=== PATIENT | female | born 1945 | race African-American/Black ===

== ENCOUNTER 2021-05-28 14:15 | Emergency (ER) | payer MEDICARE, OTHER ==
[~2021-05-28] VITALS: Ht 170.2 cm; Wt 82.6 kg
[~2021-05-28 14:15] MED LIST: GLIP10TA12 PO; GLU500 PO
[2021-05-28 14:20] VITALS: BP 129/79
--- NOTE | 2021-05-28 14:42 | NUR ---
DR RODRIGUEZ AT BEDSIDE EXAMINING PT
[2021-05-28] MEDS ORDERED: BLOOD GLUCOSE MONITORING 1 DEV DEV FS ONE (14:50)
[2021-05-28] MEDS ORDERED: DEXAMETHASONE 4 MG TAB PO ONE (14:50)
[2021-05-28] MEDS ORDERED: CETI10SG1 PO (14:56)
[2021-05-28] MEDS ORDERED: FAMO20TA13 PO (14:57)
--- NOTE | 2021-05-28 14:59 | NUR ---
75 Y/O Female with c/o area surrounding left eye swelling. Patient is S/P allergic reastion x2 days. Patient thinks its from hair dye. Patient denies SOB.
[2021-05-28 15:16] VITALS: BP 129/79
--- NOTE | 2021-05-28 15:17 | NUR ---
Patient discharged with v/s stable. Written and verbal after care instructions given. Patient alert, oriented and verbalized understanding of instructions. Ambulatory with steady gait. All questions addressed prior to discharge. ID band removed. Patient advised to follow up with PMD. Rx of Zyrtec and Famotodine given. Opportunity to ask questions provided and answered.
== END 2021-05-28 15:17 | disposition home or self-care (01) ==
LOC: MED 14:15
DX: L25.2 Unspecified contact dermatitis due to dyes (principal); E11.9 Type 2 diabetes mellitus without complications; I10 Essential (primary) hypertension; E78.00 Pure hypercholesterolemia, unspecified; Z88.0 Allergy status to penicillin
CPT/HCPCS: 99283